=== PATIENT | male | born 1965 | race Two or more races ===

== ENCOUNTER 2019-11-02 12:44 | Emergency (ER) | payer MEDICAID ==
[~2019-11-02] VITALS: Ht 167.6 cm; Wt 75.7 kg
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
[2019-11-02 13:04] VITALS: BP 109/69
[2019-11-02] MEDS ORDERED: Tylenol #3 tab (300mg/30mg) ORAL ONE (13:30)
[2019-11-02] MEDS ORDERED: Tetanus/Diptheria/Pertussis IM ONE (13:30)
[2019-11-02] MEDS ORDERED: Lidocaine 2% 20mg/ml/EPI 0.01mg/ml 20ml INJ ONE (13:30)
[2019-11-02] MEDS ORDERED: Bacitracin Oint UD TOPIC ONE (13:30)
--- NOTE | 2019-11-02 13:33 | Emergency Room Report ---
History of Present Illness General Chief Complaint: Laceration Source: Patient Present Illness HPI 54 YO male presents to the ED c/o laceration to Dorsum of the left hand that is causing him 7/10 in severity pain. Pt. is right hand dominant. Not up to date with tetanus. Able to fully extend and flex all digits on the affected hand. Bleeding has stopped at this time. Pt. has no suspicion of FB. Patient denies paresthesias or loss of gross motor movements. He has not taken anything for him pain. Allergies: Coded Allergies: No Known Allergies (Unverified , 11/02/19) COVID-19 Screening Contact w/high risk pt: No Experienced COVID-19 symptoms?: No COVID-19 Testing performed NATIONAL BUSINESS DIRECTOR: No Patient History Past Medical History: see triage record Past Surgical History: none Pertinent Family History: none Reviewed Nursing Documentation: PMH: Agreed; PSxH: Agreed Nursing Documentation-PMH Past Medical History: No Stated History Review of Systems All Other Systems: negative except mentioned in HPI Physical Exam Vital Signs Date Time Temp Pulse Resp B/P (MAP) Pulse Ox O2 Delivery O2 Flow Rate FiO2 11/02/19 12:58 98.8 69 17 109/69 (82) 99 Room Air Sp02 EP Interpretation: reviewed, normal General Appearance: no apparent distress, alert, GCS 15, non-toxic Head: normocephalic, atraumatic Eyes: bilateral eye normal inspection, bilateral eye PERRL ENT: hearing grossly normal, normal voice Neck: full range of motion Respiratory: chest non-tender, lungs clear, normal breath sounds, speaking full sentences Cardiovascular #1: regular rate, rhythm, no edema, normal capillary refill Musculoskeletal: normal range of motion, digits/nails normal, gait/station normal, non-tender Neurologic: alert, motor strength/tone normal, oriented x3, sensory intact, responsive, speech normal Psychiatric: judgement/insight normal Skin: laceration - Dorsal left hand laceration approx 1 cm in length. No visible FB, no bleeding at this time. NVI Procedures Laceration/Wound Repair Laceration/Wound Repair : Consent: Verbal Wound Location: upper extremity - Dorsum of the left hand Wound's Depth, Shape: linear Wound Length (cm): 1 Wound Explored: clean Irrigated w/ Saline (ccs): 500 Anesthesia: Lidocaine w/ Epi Volume Anesthetic (ccs): 2 Wound Repaired With: sutures Suture Size/Type: 4:0 Number of Sutures: 6 Layer Closure?: No Sterile Dressing Applied?: Yes Splint Applied?: Yes Type of Splint Applied: Volar hand/wrist - left Sling Applied?: No Patient Tolerated: Well Complications: None Medical Decision Making PA Attestation Dr. Chou is my supervising Physician whom patient management has been discussed with. Diagnostic Impression: Primary Impression: Laceration ER Course 54 YO male presents to the ED c/o laceration to Dorsum of the left hand that is causing him 7/10 in severity pain. Pt. is right hand dominant. Not up to date with tetanus. Able to fully extend and flex all digits on the affected hand. Bleeding has stopped at this time. Pt. has no suspicion of FB. Patient denies paresthesias or loss of gross motor movements. Ddx considered but are not limited to laceration, tendon injury, cellulitis, amputation Vital signs: are WNL, pt. is afebrile H&PE are most consistent with: Dorsal left hand laceration approx 1 cm in length ORDERS: none required at this time, the diagnosis is clinical ED INTERVENTIONS: -Tetanus vaccine was administered as pt. vaccination status was unknown. - The wound was copiously irrigated with normal saline, and explored for foreign body for which no FB was found. - The wound was approximated and closed using [ ] interrupted [ ] Prolene sutures. -Bacitracin and sterile dressing is applied. Discussed with patient: That we make every effort to approximate the laceration as best as we can so that scarring will be as cosmetically pleasing as possible with our limited cosmetic skill set in the Emergency dept. Regardless of our best efforts there will be scarring after laceration repair. The extent of scarring is unknown at this time. DISCHARGE: At this time pt. is stable for d/c to home. Will provide printed patient care instructions, and any necessary prescriptions. Care plan and follow up instructions have been discussed with the patient prior to discharge. Last Vital Signs Date Time Temp Pulse Resp B/P (MAP) Pulse Ox O2 Delivery O2 Flow Rate FiO2 11/02/19 13:04 98.8 69 17 109/69 99 Room Air Status: improved Disposition: HOME, SELF-CARE Condition: Stable Scripts Acetaminophen* (TYLENOL EXTRA STRENGTH*) 500 Mg Tablet 500 MG ORAL Q6H, #20 TAB 0 Refills Prov: Kendra Ambrocio 11/02/19 Bacitracin (Bacitracin) 28.4 Gm Oint...g. 1 APPLIC TOPIC THREE TIMES A DAY, #28.4 GM Prov: Kendra Ambrocio 11/02/19 Cephalexin* (KEFLEX*) 500 Mg Capsule 500 MG ORAL EVERY 12 HOURS for 7 Days, #14 CAP 0 Refills Prov: Kendra Ambrocio 11/02/19 Patient Instructions: Laceration Care, Adult Additional Instructions: Take medications as directed. Follow up with a Primary Care Provider in 3-5 days, even if your symptoms have resolved. --Please review list of primary care clinics, if you do not already have a primary care provider Return sooner to ED if new symptoms occur, or current symptoms become worse. - Please note that this Emergency Department Report was dictated using Vision Criticalinstrument technologist technology software, occasionally this can lead to erroneous entry secondary to interpretation by the dictation equipment. Kendra Ambrocio Nov 02, 2019 13:33
[2019-11-02] MEDS ORDERED: CEPHALEXIN500 MG ORAL (14:12)
[2019-11-02] MEDS ORDERED: BACITRACIN15 GM TOPIC (14:12)
[2019-11-02] MEDS ORDERED: TYLENOL EXTRA500 MG ORAL (14:12)
[2019-11-02 14:29] VITALS: BP 111/70
--- NOTE | 2019-11-02 14:31 | NUR ---
ED Nurse Note:wound was cleaned and sutures placed by ER PA, then volnar splint
--- NOTE | 2019-11-02 14:40 | NUR ---
ED Nurse Note: Pt cleared by health care Provider for discharge. DC instructions/prescription was given and explained to pt and verbalized understanding of teachings. All medical deviecs such as ID band removed. Pt is AAO x4, ambulatory and left with all personal belongings.
[2019-11-02 14:41] VITALS: BP 111/70
== END 2019-11-02 14:46 | disposition home or self-care (01) ==
LOC: EMR 13:53
DX: S61.412A Laceration without foreign body of left hand, initial encounter (principal); W26.0XXA Contact with knife, initial encounter; Y93.9 Activity, unspecified; Y92.9 Unspecified place or not applicable
CPT/HCPCS: 12001; 90471; 90715; Z7502; 99283

== ENCOUNTER 2019-12-13 20:45 | Emergency (ER) | payer MEDICAID ==
[~2019-12-13] VITALS: Ht 167.6 cm; Wt 72.6 kg
[~2019-12-13 20:45] MED LIST: BACITRACIN15 GM TOPIC; CEPHALEXIN500 MG ORAL; TYLENOL EXTRA500 MG ORAL
[2019-12-13] MEDS ORDERED: Morphine Sulfate 4mg/ml Inj (IV USE ONLY) IVP ONE (21:15)
[2019-12-13 21:21] LABS: EOSINOPHILS % (AUTO) 0.8 % (0.0-3.0); HEMATOCRIT 44.3 % (42.0-52.0); HEMOGLOBIN 15.2 G/DL (14.2-18.0); LYMPHOCYTES % (AUTO) 35.2 % (20.0-45.0); MEAN CORPUSCULAR VOLUME 94 FL (80-99); MONOCYTES % (AUTO) 5.9 % (1.0-10.0); NEUTROPHILS % (AUTO) 57.1 % (45.0-75.0); PLATELET COUNT 256 K/UL (150-450); RED BLOOD COUNT 4.71 M/UL (4.70-6.10); RED CELL DISTRIBUTION WIDTH 12.7 % (11.6-14.8); WHITE BLOOD COUNT 6.7 K/UL (4.8-10.8)
[2019-12-13 21:24] LABS: APPEARANCE,URINE CLEAR; BILIRUBIN, URINE NEGATIVE (NEGATIVE); GLUCOSE, URINE (UA) NEGATIVE (NEGATIVE); KETONES,URINE NEGATIVE (NEGATIVE); LEUKOCYTE ESTERASE ,URINE NEGATIVE (NEGATIVE); NITRITE,URINE NEGATIVE (NEGATIVE); PH,URINE 5 (4.5-8.0); PROTEIN,URINE NEGATIVE (NEGATIVE); UROBILINOGEN,URINE NORMAL MG/DL (0.0-1.0)
[2019-12-13 21:25] LABS: COLOR,URINE YELLOW
[2019-12-13 21:45] LABS: ANION GAP 10 mmol/L (5-15); BLOOD UREA NITROGEN 15 mg/dL (7-18); CALCIUM 9.1 MG/DL (8.5-10.1); CARBON DIOXIDE 29 MMOL/L (21-32); CHLORIDE 103 MMOL/L (98-107); CREATININE 1.1 MG/DL (0.55-1.30); POTASSIUM 3.4 MMOL/L (3.5-5.1); SODIUM 142 MMOL/L (136-145)
[2019-12-13 21:49] LABS: ALANINE AMINOTRANSFERASE 36 U/L (12-78); ALBUMIN 4.1 G/DL (3.4-5.0); ALKALINE PHOSPHATASE 96 U/L (46-116); ASPARTATE AMINO TRANSFERASE 27 U/L (15-37); BILIRUBIN,TOTAL 0.3 MG/DL (0.2-1.0)
--- NOTE | 2019-12-13 21:59 | Diagnostic Imaging Report ---
EXAM: CT Abdomen and Pelvis Without Intravenous Contrast CLINICAL HISTORY: PAIN Per notes: Left lower quadrant pain 10 out of 10. TECHNIQUE: Axial computed tomography images of the abdomen and pelvis without intravenous contrast. CTDI is 5.4 mGy and DLP is 290.6 mGy-cm. One or more of the following dose reduction techniques were used: automated exposure control, adjustment of the mA and/or kV according to patient size, use of iterative reconstruction technique. COMPARISON: No relevant prior studies available. FINDINGS: Evaluation of the vasculature and soft tissues limited on this noncontrast exam. Lung bases: Minimal hypoventilatory changes are noted in the left lower lobe. ABDOMEN: Liver: 5 mm hypoattenuating lesion in the left hepatic lobe, too small to characterize but possibly representing a cyst (20). Incidental note is made of a 14 mm right hepatic lobe mass (5: 48), indeterminate on this noncontrast exam. Gallbladder and bile ducts: Unremarkable. No calcified stones. No ductal dilation. Pancreas: Unremarkable. No ductal dilation. Spleen: Unremarkable. No splenomegaly. Adrenals: Unremarkable. No mass. Kidneys and ureters: Punctate left renal stones are identified (5: 47). Nonobstructing right renal stones are identified the largest measuring 5 mm (5: 49). 3 mm stone identified in the left uretero- vesicular junction (5: 116 sumner images). There is minimal left hydroureter and hydronephrosis.. Mild distal left periureteral inflammatory changes are identified (sumner images). Stomach and bowel: Incidental note is made of a 20 mm gastric diverticulum (5: 36). No obstruction. No mucosal thickening. Sigmoid diverticulosis, without evidence of acute diverticulitis. PELVIS: Appendix: Normal appendix (5: 89). Reproductive: Enlarged prostate gland measuring 55 mm in the transverse dimension (5: 124). ABDOMEN and PELVIS: Intraperitoneal space: Unremarkable. No free air. No ascites. Bones/joints: Right iliac bone island (104). Soft tissues: Unremarkable. Vasculature: Unremarkable. No abdominal aortic aneurysm. Lymph nodes: Unremarkable. No enlarged lymph nodes. IMPRESSION: 1. Mild left hydroureteronephrosis secondary to a 3 mm stone identified at the left uretero-vesicular junction. 2. Additional bilateral nonobstructing subcentimeter renal stones. 3. Incidental note is made of an indeterminate 14 mm right hepatic lobe mass/lesion. Consider follow-up with outpatient multiphase liver CT, if clinically indicated. 4. Incidental note is made of prostatomegaly.
[2019-12-13 22:00] VITALS: BP 129/74
[2019-12-13] MEDS ORDERED: Tamsulosin 0.4mg cap ORAL STA (22:05)
[2019-12-13] MEDS ORDERED: ROBAXIN-750750 MG PO (22:11)
[2019-12-13] MEDS ORDERED: ACETAMINOPHEN-1 EAC1 ORAL (22:11)
[2019-12-13] MEDS ORDERED: NAPROXEN500 M1 ORAL (22:11)
[2019-12-13] MEDS ORDERED: FLOMAX0.4 MG ORAL (22:11)
--- NOTE | 2019-12-13 22:12 | Emergency Room Report ---
History of Present Illness General Chief Complaint: Abdominal Pain Source: Patient Present Illness HPI 54-year-old male presents with abdominal pain that is started acutely prior to arrival. Also endorses left flank pain that seems to be radiating from the left upper quadrant down to the left lower quadrant. Denies hematuria, dysuria, inc urinary frequency, fever, chills, testicular pain, scrotal pain, or history of STI. States he had a similar episode several years ago but it self resolved. The patient's symptoms were gradual onset, severity was moderate, duration since a few hours intermittent,. Quality: Intermittent denies Past medical history: Denies Past surgical history: Denies Smoking: Denies Alcohol use: Denies Drug use: Denies Review of systems: CONST: No fevers or chills, No night sweats PULMONARY: No productive cough, No shortness of breath CARDIAC: No chest pain, No palpitations GI: No vomiting, No diarrhea , No melena_or_BRBPR : No dysuria, No hematuria, No discharge NEURO: No new_focal_weakness_or_numbness, No confusion, No vision changes 14 point Review of Systems is otherwise negative except per HPI Physical Exam: GENERAL: Awake_alert_ nontoxic, no acute distress Spo2 100% on RA -normal EYES: Extraocular muscles are intact. Conjunctivae clear. Lids without swelling ENT: External nose and ear normal_in_appearance. Oropharynx clear. Head_ atraumatic, Moist_oral_mucosa NECK: No JVD. No meningismus. No thyromegaly. Supple. Trachea midline RESP: Normal respiratory effort. Symmetric rise. No stridor. Clear_to_ auscultation_No_rales_No_wheezes CARDIAC: Regular rate and regular rhytm. No_significant pedal edema. ABDOMEN: Soft. Nondistended. No_rebound_or_guarding. No CVA tenderness palpation. Mild left lower quadrant tenderness palpation. No guarding. No rigidity. No rebound. Negative Rovsing's. Negative Melo's MSK: Normal muscle tone, without rigidity. Extremities without asymmetric deformity or swelling. SKIN: Warm and dry. No visible cyanosis or pallor NEUROLOGIC: Alert, oriented x3. Motor_and_sensation_grossly_intact. No truncal ataxia. Gait_normal Psych: Normal mood and affect, normal judgment and insight - COORDINATION OF CARE Case was discussed with: Patient Any labs and imaging that were ordered were interpreted as part of the medical decision making: Medical Decision Making/Plan: Differential diagnosis includes nephrolithiasis, pyelonephritis, cholecystitis, choledocholithiasis, hepatitis, DOUBT small bowel obstruction, volvulus, AAA, pancreatitis, atypical appendicitis, gastroparesis, gastritis, peptic ulcer disease, among others. Patient is well appearing with stable vital signs. Abdominal exam is non peritoneal with no guarding or rebound. Labs show stable hemoglobin. No leukocytosis. UA is negative for UTI. EKG shows sinus bradycardia without any acute ischemia CT scan shows small 3 mm stone obstructing at the UVJ. ED intervention included IV fluids, Flomax, Toradol, and morphine with relief of symptoms. Patient was given a urine strainer and told to strain his urine Incidentally he was also informed of a liver mass that was found on his CAT scan. Patient verbalizes his understanding to follow-up for reimaging with his primary care doctor within 1 month Otherwise we talked about drinking plenty of fluids and repeat follow-up with his primary care doctor for repeat abdominal exam within 12 to 24 hours. Patient verbalizes his understanding. As far as pain control, will prescribe Robaxin and Tylenol 3. He was instructed not to drive or operate heavy machinery while taking these as they can be sedating. The patient denies any bloody stool and has no pain out of proportion to exam, and no significant risk factors for mesenteric ischemia such as atrial fibrillation or severe PAD/PVD (peripheral arterial / vascular disease), thus definitive workup to rule out mesenteric ischemia was not pursued. Patient is afebrile, without any significant tenderness in the RUQ, and a negative [place] sign. The patients presentation does not appear to be consistent with acute cholecystitis and thus definitive imaging to rule it out was not pursued. The patient has no significant risk factors for AAA (abdominal aortic aneurysm) such as hypertension, connective tissue disorder, or 1st degree relative with AAA. The patient has normal dorsalis pedis pulses, no radiation of pain to the back, and no pulsatile mass felt on exam. The patients profile was overall low risk for AAA and definitive workup was not pursued. The patients symptoms are not consistent with ACS (acute coronary syndrome), symptoms are not exertional, EKG without obvious ischemic change. Pertinent results reviewed with the patient. I educated the patient on the current treatment plan including the risks, benefits, and alternatives. I also discussed the extent and limitations of the current evaluation. The patient expressed understanding and agreement with plan. I recommended PMD follow-up within 1-2 days. Also advised that the patient return to the Emergency Department as soon as possible if they experience any new, persistent, or worsening symptoms. Allergies: Coded Allergies: No Known Allergies (Unverified , 11/02/19) COVID-19 Screening Contact w/high risk pt: No Experienced COVID-19 symptoms?: No COVID-19 Testing performed TINNER AUTOMATIC: No Nursing Documentation-PMH Past Medical History: No Stated History Physical Exam Vital Signs Date Time Temp Pulse Resp B/P (MAP) Pulse Ox O2 Delivery O2 Flow Rate FiO2 12/13/19 20:50 98.4 64 23 132/61 (84) 98 Room Air Sp02 EP Interpretation: reviewed, normal Medical Decision Making Diagnostic Impression: Primary Impression: Nephrolithiasis Additional Impressions: Abdominal pain Liver mass BPH (benign prostatic hyperplasia) EKG Diagnostic Results PA Scribe Text 12-lead EKG (interpreted by me) Time: 2112 Indication: Rhythm analysis Tracing visualized and Interpreted by me. Rhythm: Normal sinus rhythm Rate: 52 bpm QTc: 373 Morphology: No_significant_ST_elevations_or_depressions, No STEMI Impression: Sinus bradycardia Rhythm Strip Diag. Results Rhythm Strip Time: 22:09 EP Interpretation: yes Rate: 70 Rhythm: NSR, no PVC's, no ectopy CT/MRI/US Diagnostic Results CT/MRI/US Diagnostic Results : Impression CT Abdomen Pelvis WO Contrast EXAM: CT Abdomen and Pelvis Without Intravenous Contrast CLINICAL HISTORY: PAIN Per notes: Left lower quadrant pain 10 out of 10. TECHNIQUE: Axial computed tomography images of the abdomen and pelvis without intravenous contrast. CTDI is 5.4 mGy and DLP is 290.6 mGy-cm. One or more of the following dose reduction techniques were used: automated exposure control, adjustment of the mA and/or kV according to patient size, use of iterative reconstruction technique. COMPARISON: No relevant prior studies available. FINDINGS: Evaluation of the vasculature and soft tissues limited on this noncontrast exam. Lung bases: Minimal hypoventilatory changes are noted in the left lower lobe. ABDOMEN: Liver: 5 mm hypoattenuating lesion in the left hepatic lobe, too small to characterize but possibly representing a cyst (20). Incidental note is made of a 14 mm right hepatic lobe mass (5: 48), indeterminate on this noncontrast exam. Gallbladder and bile ducts: Unremarkable. No calcified stones. No ductal dilation. Pancreas: Unremarkable. No ductal dilation. Spleen: Unremarkable. No splenomegaly. Adrenals: Unremarkable. No mass. Kidneys and ureters: Punctate left renal stones are identified (5: 47). Nonobstructing right renal stones are identified the largest measuring 5 mm (5: 49). 3 mm stone identified in the left uretero- vesicular junction (5: 116 sumner images). There is minimal left hydroureter and hydronephrosis.. Mild distal left periureteral inflammatory changes are identified (sumner images). Stomach and bowel: Incidental note is made of a 20 mm gastric diverticulum (5: 36). No obstruction. No mucosal thickening. Sigmoid diverticulosis, without evidence of acute diverticulitis. PELVIS: Appendix: Normal appendix (5: 89). Reproductive: Enlarged prostate gland measuring 55 mm in the transverse dimension (5: 124). ABDOMEN and PELVIS: Intraperitoneal space: Unremarkable. No free air. No ascites. Bones/joints: Right iliac bone island (104). Soft tissues: Unremarkable. Vasculature: Unremarkable. No abdominal aortic aneurysm. Lymph nodes: Unremarkable. No enlarged lymph nodes. IMPRESSION: 1. Mild left hydroureteronephrosis secondary to a 3 mm stone identified at the left uretero-vesicular junction. 2. Additional bilateral nonobstructing subcentimeter renal stones. 3. Incidental note is made of an indeterminate 14 mm right hepatic lobe mass/lesion. Consider follow-up with outpatient multiphase liver CT, if clinically indicated. 4. Incidental note is made of prostatomegaly. Reevaluation Time: 22:10 Last Vital Signs Date Time Temp Pulse Resp B/P (MAP) Pulse Ox O2 Delivery O2 Flow Rate FiO2 12/13/19 21:53 98.4 12/13/19 20:50 64 23 132/61 (84) 98 Room Air Status: improved Disposition: HOME, SELF-CARE Admit Decision Time: 22:10 Condition: Stable Scripts Naproxen* (NAPROXEN*) 500 Mg Tablet.dr 500 MG ORAL TWICE A DAY for 14 Days, #28 TAB Prov: Yana Pollack D.O. 12/13/19 Acetaminophen With Codeine (T#3) (TYLENOL #3 TAB*) Y Tab 1 TAB ORAL Q8H PRN for For Pain, #20 TAB Prov: Yana Pollack D.O. 12/13/19 Methocarbamol* (ROBAXIN-750*) 750 Mg Tablet 750 MG PO TID, #21 TAB 0 Refills Prov: Yana Pollack D.O. 12/13/19 Tamsulosin HCl (Flomax) 0.4 Mg Cap.er.24h 0.4 MG ORAL DAILY for 14 Days, #14 CAP Prov: Yana Pollack D.O. 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 Follow-up with your doctor sooner if your condition requires a more timely clinical reevaluation. Return to the emergency department immediately if you feel that your condition is worsening or if you have any new or concerning symptoms. Review your discharge instructions and take any prescriptions given as instructed. Yana Pollack D.O. Dec 13, 2019 22:12
[2019-12-13] MEDS ORDERED: Ketorolac 30mg Inj IV ONE (22:15)
[2019-12-13] MEDS ORDERED: Morphine Sulfate 2mg/ml Inj(IV/IM USE ONLY) IVP ONE (23:00)
[2019-12-13 23:15] VITALS: BP 119/71
[2019-12-13 23:35] VITALS: BP 119/71
== END 2019-12-13 23:35 | disposition home or self-care (01) ==
LOC: EMR 21:24
DX: N13.2 Hydronephrosis with renal and ureteral calculous obstruction (principal); R10.9 Unspecified abdominal pain; R16.0 Hepatomegaly, not elsewhere classified; N40.0 Benign prostatic hyperplasia without lower urinary tract symptoms; R00.1 Bradycardia, unspecified; K57.90 Diverticulosis of intestine, part unspecified, without perforation or abscess without bleeding
CPT/HCPCS: 36415; 74176; 80053; 81003; 83690; 84484; 85025; 85610; 85730; 93005; 96361; 96374; 96375; 96376; J1885; J2270; J2405; J7030; Z7502; 99284